=== PATIENT | male | born 1990 | race Caucasian/White ===

== ENCOUNTER 2020-10-31 09:50 | Outpatient (CLI) | payer BC ==
[2020-10-31 17:49] LABS: SARS-CoV-2 PCR by NAA Not Detected (NotDetected)
== END 2020-10-31 09:51 | disposition home or self-care (01) ==
LOC: LABBT 09:50
PROVIDERS: ATTEND Orthopaedic Surgery
DX: Z01.812 Encounter for preprocedural laboratory examination (principal); S76.111A Strain of right quadriceps muscle, fascia and tendon, initial encounter; Z20.822 Contact with and (suspected) exposure to COVID-19
CPT/HCPCS: 87635; U0003; U0005

== ENCOUNTER 2020-11-05 09:02 | Day surgery (SDC) | payer BC ==
[2020-11-04 10:32] VITALS: BMI 26.7
[2020-11-05] MEDS ORDERED: Fentanyl 100 MCG/2 ML VIAL ONE ×2 (09:33→12:32)
[2020-11-05] MEDS ORDERED: Midazolam HCl 2 mg/2 ml Vial ONE (09:33)
[2020-11-05] MEDS ORDERED: Fentanyl 250 MCG/5 ML VIAL ONE (10:01)
[2020-11-05] MEDS ORDERED: Lidocaine 1% PF 5 ML VIAL ONE (10:11)
[2020-11-05] MEDS ORDERED: Dexamethasone 20 MG/5 ML VIAL ONE (10:11)
[2020-11-05] MEDS ORDERED: Ondansetron PF 4 MG/2 ML Vial ONE (10:11)
[2020-11-05] MEDS ORDERED: Ketorolac Tromethamine 30 MG/ML VIAL ONE (10:11)
[2020-11-05] MEDS ORDERED: PROPOFOL 200 MG/20 ML VIAL ONE (10:11)
[2020-11-05] MEDS ORDERED: Meperidine HCl/PF 25 MG/ML VIAL ONE (12:18)
[2020-11-05] MEDS ORDERED: Meperidine HCl/PF 25 MG/ML VIAL SLOW IVP SCH (12:20)
[2020-11-05] MEDS ORDERED: Promethazine HCl 25 MG/ML VIAL IM PRN (12:45)
[2020-11-05] MEDS ORDERED: Ondansetron PF 4 MG/2 ML Vial IVP PRN (12:45)
[2020-11-05] MEDS ORDERED: Ropivacaine 0.2% 550 ML 550 ML NERVE BLCK SCH (12:45)
[2020-11-05] MEDS ORDERED: Zolpidem Tartrate 5 MG TAB PO PRN (12:45)
[2020-11-05] MEDS ORDERED: Promethazine HCl 25 MG/ML VIAL ONE (13:51)
== END 2020-11-05 16:00 | disposition home or self-care (01) ==
LOC: SDC 09:02
PROVIDERS: ATTEND Orthopaedic Surgery
PROC: 3E0T3BZ Introduction of Anesthetic Agent into Peripheral Nerves and Plexi, Percutaneous Approach (ICD-10-PCS; principal; 2020-11-05)
PROC: 0LML0ZZ Reattachment of Right Upper Leg Tendon, Open Approach (ICD-10-PCS; principal; 2020-11-05)
DX: S76.111A Strain of right quadriceps muscle, fascia and tendon, initial encounter (principal); G89.18 Other acute postprocedural pain; X58.XXXA Exposure to other specified factors, initial encounter; Y93.64 Activity, baseball
CPT/HCPCS: A4306; C1713; J0690; J1100; J1885; J2175; J2250; J2405; J2550; J2704; J2795; J3010; L1830